=== PATIENT | female | born 1975 | race Hispanic/Latino ===

== ENCOUNTER 2018-05-05 00:02 | Emergency (ER) | payer OTHER ==
[2018-05-05] MEDS ORDERED: SODIUM CHLORIDE 0.9% 1000ML 1,000 ML IV ONE (00:41)
[2018-05-05] MEDS ORDERED: DiphenhydrAMINE HCL 50 MG/ML VIAL ONE (00:41)
[2018-05-05] MEDS ORDERED: ONDANSETRON HCL 4 MG/2 ML VIAL ONE (00:41)
[2018-05-05 00:48] LABS: BASOPHILS % (AUTO) 0.8 % (0.0-5.0); EOSINOPHILS % (AUTO) 2.9 % (0.0-8.0); HEMATOCRIT 40.8 % (36-48); LYMPHOCYTES % (AUTO) 37.2 % (21.0-51.0); MEAN CORPUSCULAR HEMOGLOBIN 30.3 pg (27.0-33.0); MEAN CORPUSCULAR HGB CONC 33.6 g/dL (32.0-36.0); MEAN CORPUSCULAR VOLUME 90.2 fL (79-99); MONOCYTES % (AUTO) 6.7 % (3.0-13.0); NEUTROPHILS % (AUTO) 52.4 % (40.0-77.0); PLATELET COUNT (AUTO) 361 K/uL (130-400); RED BLOOD CELL COUNT(AUTO) 4.53 MIL/uL (4.00-5.50); RED CELL DISTRIBUTION WIDTH 12.8 % (11.0-15.5); WHITE BLOOD COUNT (AUTO) 9.1 K/uL (4.8-10.8)
[2018-05-05 00:52] LABS: APPEARANCE,URINE Clear (CLEAR); BILIRUBIN,URINE Negative (NEGATIVE); COLOR,URINE Yellow (YELLOW); GLUCOSE, URINE (UA) Negative (NEGATIVE); KETONES,URINE Negative (NEGATIVE); LEUKOCYTE ESTERASE ,URINE Negative (NEGATIVE); NITRATE,URINE Negative (NEGATIVE); OCCULT BLOOD,URINE Trace (NEGATIVE); PH,URINE >=9.0 (5.0-8.0); PROTEIN,URINE Negative (NEGATIVE)
[2018-05-05 00:53] LABS: AMPHET/METH SCREEN,URINE NEGATIVE (NEGATIVE); BARBITURATE SCREEN, URINE NEGATIVE (NEGATIVE); BENZODIAZEPINES SCREEN,URINE NEGATIVE (NEGATIVE); CANNABINOID SCREEN,URINE NEGATIVE (NEGATIVE); COCAINE SCREEN,URINE NEGATIVE (NEGATIVE); OPIATE SCREEN,URINE NEGATIVE (NEGATIVE); PHENCYCLIDINE SCREEN,URINE NEGATIVE (NEGATIVE)
[2018-05-05 00:56] LABS: CREATININE 0.8 mg/dL (0.5-1.5); POTASSIUM 3.7 mmol/L (3.5-5.1)
[2018-05-05 01:00] LABS: ALBUMIN 3.3 g/dL (3.5-5.0); BACTERIA,URINE Rare /HPF (None Seen); BILIRUBIN,DIRECT 0.1 mg/dL (0.0-0.3); BILIRUBIN,TOTAL 0.5 mg/dL (0.2-1.0); SQUAMOUS EPITHELIAL CELL,UR 0-2 /HPF (0-2); TOTAL PROTEIN, SERUM 7.3 g/dL (6.0-8.3)
== END 2018-05-05 02:07 | disposition home or self-care (01) ==
LOC: EDH 00:02
DX: K29.00 Acute gastritis without bleeding (principal); Z98.51 Tubal ligation status
CPT/HCPCS: 36415; 80048; 80076; 80305; 81001; 83690; 85025; 96361; 96374; 96375; 99284; J1200; J2405; J7030

== ENCOUNTER → 2018-07-03 | Outpatient (CLI) | payer OTHER | END | disposition home or self-care (01) | LOC: RAH 06-26 09:35 | PROVIDERS: ATTEND Internal Medicine Gastroenterology | DX: K29.70 Gastritis, unspecified, without bleeding (principal); K44.9 Diaphragmatic hernia without obstruction or gangrene | CPT/HCPCS: 74240 ==

== ENCOUNTER 2019-03-10 21:39 | Emergency (ER) | payer OTHER ==
[2019-03-10] MEDS ORDERED: FAMOTIDINE/PF 20 MG/2 ML VIAL IV ONE (22:30)
[2019-03-10] MEDS ORDERED: ONDANSETRON HCL 4 MG/2 ML VIAL ONE (22:30)
[2019-03-10] MEDS ORDERED: SODIUM CHLORIDE 0.9% 1000ML 2,000 ML IV ONE (22:32)
[2019-03-10 22:38] LABS: BASOPHILS % (AUTO) 1.1 % (0.0-5.0); EOSINOPHILS % (AUTO) 1.7 % (0.0-8.0); HEMATOCRIT 42.4 % (36-48); MEAN CORPUSCULAR HEMOGLOBIN 30.9 pg (27.0-33.0); MONOCYTES % (AUTO) 7.2 % (3.0-13.0); PLATELET COUNT (AUTO) 356 K/uL (130-400); RED BLOOD CELL COUNT(AUTO) 4.66 MIL/uL (4.00-5.50); RED CELL DISTRIBUTION WIDTH 13.2 % (11.0-15.5); WHITE BLOOD COUNT (AUTO) 9.6 K/uL (4.8-10.8)
[2019-03-10 22:44] LABS: APPEARANCE,URINE Clear (CLEAR); BILIRUBIN,URINE Negative (NEGATIVE); COLOR,URINE Yellow (YELLOW); GLUCOSE, URINE (UA) Negative (NEGATIVE); KETONES,URINE Negative (NEGATIVE); LEUKOCYTE ESTERASE ,URINE Moderate (NEGATIVE); NITRATE,URINE Negative (NEGATIVE); OCCULT BLOOD,URINE Moderate (NEGATIVE); PH,URINE 5.5 (5.0-8.0); PROTEIN,URINE Negative (NEGATIVE)
[2019-03-10 22:46] LABS: HCG,QUAL RESULT NEGATIVE (NEGATIVE)
[2019-03-10 22:50] LABS: CREATININE 0.8 mg/dL (0.5-1.5); POTASSIUM 3.3 mmol/L (3.5-5.1)
[2019-03-10 22:54] LABS: ALBUMIN 3.8 g/dL (3.5-5.0); BILIRUBIN,TOTAL 0.9 mg/dL (0.2-1.0); TOTAL PROTEIN, SERUM 7.9 g/dL (6.0-8.3)
[2019-03-10 23:06] LABS: BACTERIA,URINE Few /HPF (None Seen); MUCUS,URINE Moderate LPF (None Seen); SQUAMOUS EPITHELIAL CELL,UR Moderate /HPF (0-2)
[2019-03-10] MEDS ORDERED: LEVOFLOXACIN 500 MG TABLET ONE (23:16)
== END 2019-03-10 23:58 | disposition home or self-care (01) ==
LOC: EDH 21:39
DX: E86.9 Volume depletion, unspecified (principal); R19.7 Diarrhea, unspecified; R11.2 Nausea with vomiting, unspecified; Z98.51 Tubal ligation status; Z86.718 Personal history of other venous thrombosis and embolism
CPT/HCPCS: 36415; 80053; 81001; 81025; 82550; 83690; 85025; 96361; 96374; 96375; 99284; J2405; J3490; J7030

== ENCOUNTER 2019-06-03 14:15 | Emergency (ER) | payer OTHER ==
[2019-06-03] MEDS ORDERED: SODIUM CHLORIDE 0.9% 1000ML 1,000 ML IV ONE (15:05)
[2019-06-03] MEDS ORDERED: ONDANSETRON HCL 4 MG/2 ML VIAL ONE (15:05)
[2019-06-03 15:22] LABS: BASOPHILS % (AUTO) 0.1 % (0.0-5.0); EOSINOPHILS % (AUTO) 1.1 % (0.0-8.0); HEMATOCRIT 40.8 % (36-48); LYMPHOCYTES % (AUTO) 30.7 % (21.0-51.0); MEAN CORPUSCULAR HGB CONC 34.4 g/dL (32.0-36.0); MEAN CORPUSCULAR VOLUME 90.2 fL (79-99); MONOCYTES % (AUTO) 9.7 % (3.0-13.0); NEUTROPHILS % (AUTO) 58.4 % (40.0-77.0); PLATELET COUNT (AUTO) 332 K/uL (130-400); RED BLOOD CELL COUNT(AUTO) 4.53 MIL/uL (4.00-5.50); WHITE BLOOD COUNT (AUTO) 9.8 K/uL (4.8-10.8)
[2019-06-03 15:22] LABS: APPEARANCE,URINE Cloudy (CLEAR); BILIRUBIN,URINE Small (NEGATIVE); COLOR,URINE Dark Yellow (YELLOW); GLUCOSE, URINE (UA) Negative (NEGATIVE); KETONES,URINE 40 mg/dL (NEGATIVE); LEUKOCYTE ESTERASE ,URINE Small (NEGATIVE); NITRATE,URINE Negative (NEGATIVE); OCCULT BLOOD,URINE Moderate (NEGATIVE); PROTEIN,URINE POS 1+ mg/dL (NEGATIVE)
[2019-06-03 15:30] LABS: AMPHET/METH SCREEN,URINE NEGATIVE (NEGATIVE); BARBITURATE SCREEN, URINE NEGATIVE (NEGATIVE); BENZODIAZEPINES SCREEN,URINE NEGATIVE (NEGATIVE); CANNABINOID SCREEN,URINE NEGATIVE (NEGATIVE); COCAINE SCREEN,URINE NEGATIVE (NEGATIVE); OPIATE SCREEN,URINE NEGATIVE (NEGATIVE); PHENCYCLIDINE SCREEN,URINE NEGATIVE (NEGATIVE)
[2019-06-03 15:33] LABS: CREATININE 0.8 mg/dL (0.5-1.5); POTASSIUM 3.8 mmol/L (3.5-5.1)
[2019-06-03 15:35] LABS: BACTERIA,URINE Moderate /HPF (None Seen); MUCUS,URINE Moderate LPF (None Seen)
[2019-06-03 15:49] LABS: ALBUMIN 3.2 g/dL (3.5-5.0); BILIRUBIN,DIRECT 0.1 mg/dL (0.0-0.3); BILIRUBIN,TOTAL 1.1 mg/dL (0.2-1.0); TOTAL PROTEIN, SERUM 7.4 g/dL (6.0-8.3)
[2019-06-03] MEDS ORDERED: DICYCLOMINE HCL 10 MG/ML 2ML AMP IM ONE (15:57)
[2019-06-03] MEDS ORDERED: KETOROLAC TROMETHAMINE 30MG/ML ONE (15:57)
== END 2019-06-03 18:19 | disposition home or self-care (01) ==
LOC: EDH 14:15
DX: K52.9 Noninfective gastroenteritis and colitis, unspecified (principal); Z98.51 Tubal ligation status; Z86.718 Personal history of other venous thrombosis and embolism
CPT/HCPCS: 36415; 71045; 74018; 80048; 80076; 80305; 81001; 82550; 83690; 85025; 93005; 96361; 96372 ×2; 96374; 99285; J0500; J1885; J2405; J7030

== ENCOUNTER 2020-03-01 09:22 | Emergency (ER) | payer OTHER ==
[2020-03-01] MEDS ORDERED: SODIUM CHLORIDE 0.9% 1000ML 1,000 ML IV ONE (09:23)
[2020-03-01] MEDS ORDERED: ONDANSETRON HCL 4 MG/2 ML VIAL ONE (09:51)
[2020-03-01] MEDS ORDERED: MORPHINE SULFATE 4 MG/1ML SYG ONE (09:52)
[2020-03-01 10:07] LABS: BASOPHILS % (AUTO) 0.3 % (0.0-5.0); HEMATOCRIT 43.4 % (36-48); LYMPHOCYTES % (AUTO) 32.3 % (21.0-51.0); MEAN CORPUSCULAR HEMOGLOBIN 30.9 pg (27.0-33.0); MEAN CORPUSCULAR HGB CONC 34.6 g/dL (32.0-36.0); MEAN CORPUSCULAR VOLUME 89.3 fL (79-99); MONOCYTES % (AUTO) 7.6 % (3.0-13.0); NEUTROPHILS % (AUTO) 57.7 % (40.0-77.0); PLATELET COUNT (AUTO) 363 K/uL (130-400); RED BLOOD CELL COUNT(AUTO) 4.86 MIL/uL (4.00-5.50); RED CELL DISTRIBUTION WIDTH 12.3 % (11.0-15.5); WHITE BLOOD COUNT (AUTO) 9.1 K/uL (4.8-10.8)
[2020-03-01 10:13] LABS: APPEARANCE,URINE CLEAR (CLEAR); BILIRUBIN,URINE SMALL (NEGATIVE); COLOR,URINE YELLOW (YELLOW); GLUCOSE, URINE (UA) NEGATIVE (NEGATIVE); KETONES,URINE 5 mg/dL (NEGATIVE); LEUKOCYTE ESTERASE ,URINE SMALL (NEGATIVE); NITRATE,URINE NEGATIVE (NEGATIVE); OCCULT BLOOD,URINE LARGE (NEGATIVE); PROTEIN,URINE 30 mg/dL (NEGATIVE)
[2020-03-01 10:19] LABS: HCG,QUAL RESULT NEGATIVE (NEGATIVE)
[2020-03-01 10:28] LABS: ALBUMIN 3.7 g/dL (3.5-5.0); BACTERIA,URINE Few /HPF (None Seen); BILIRUBIN,TOTAL 1.1 mg/dL (0.2-1.0); CREATININE 0.8 mg/dL (0.5-1.5); POTASSIUM 3.2 mmol/L (3.5-5.1); TOTAL PROTEIN, SERUM 7.8 g/dL (6.0-8.3)
[2020-03-01 10:29] LABS: SQUAMOUS EPITHELIAL CELL,UR Moderate /HPF (0-2)
[2020-03-01 10:30] LABS: MUCUS,URINE Few LPF (None Seen)
== END 2020-03-01 12:51 | disposition home or self-care (01) ==
LOC: EDH 09:22
DX: A09 Infectious gastroenteritis and colitis, unspecified (principal); R10.84 Generalized abdominal pain; Z20.828 Contact with and (suspected) exposure to other viral communicable diseases; Z86.718 Personal history of other venous thrombosis and embolism; Z98.51 Tubal ligation status
CPT/HCPCS: 36415; 74176; 80053; 81001; 81025; 83690; 84484; 85025; 87426; 93005; 96361; 96374; 96375; 99285; J2270; J2405; J7030; U0003

== ENCOUNTER → 2021-03-01 | Outpatient (CLI) | payer OTHER | END | disposition home or self-care (01) | LOC: DTH 14:21 | PROVIDERS: ATTEND Surgery | DX: G47.33 Obstructive sleep apnea (adult) (pediatric) (principal); K21.9 Gastro-esophageal reflux disease without esophagitis; E66.09 Other obesity due to excess calories; E78.00 Pure hypercholesterolemia, unspecified; K76.0 Fatty (change of) liver, not elsewhere classified | CPT/HCPCS: 97803 ==

== ENCOUNTER → 2021-04-23 | Outpatient (CLI) | payer OTHER | END | disposition home or self-care (01) | LOC: DTH 15:32 | PROVIDERS: ATTEND Surgery | DX: G47.33 Obstructive sleep apnea (adult) (pediatric) (principal); E66.09 Other obesity due to excess calories; E78.00 Pure hypercholesterolemia, unspecified; K76.0 Fatty (change of) liver, not elsewhere classified; K21.9 Gastro-esophageal reflux disease without esophagitis | CPT/HCPCS: 97803 ==

== ENCOUNTER 2021-04-30 06:57 | Day surgery (SDC) | payer OTHER ==
[~2021-04-30] VITALS: Ht 160 cm; Wt 106.6 kg
[~2021-04-30 06:57] MED LIST: ALBU1.252 IH; FLUT1BLS3 IH; FURO20TA4 PO
[2021-04-30 09:02] VITALS: BP 138/78
[2021-04-30] MEDS ORDERED: 0.9%NACL 1000ML 1,000 ML IV ONE (09:21)
[2021-04-30] MEDS ORDERED: PROPOFOL 10 MG/ML 20ML VIAL IV ONE (09:41)
[2021-04-30] MEDS ORDERED: MIDAZOLAM HCL 1 MG/ML 2ML VIAL ONE (09:42)
[2021-04-30 09:54] VITALS: BP 120/62
[2021-04-30 10:00] VITALS: BP 125/62
[2021-04-30 10:05] VITALS: BP 125/84
[2021-04-30 10:11] VITALS: BP 134/72
== END 2021-04-30 10:18 | disposition home or self-care (01) ==
LOC: DAH 06:57 → ENDO 06:57
PROVIDERS: ATTEND Surgery
DX: K21.9 Gastro-esophageal reflux disease without esophagitis (principal); Z20.822 Contact with and (suspected) exposure to COVID-19; K29.70 Gastritis, unspecified, without bleeding; J44.9 Chronic obstructive pulmonary disease, unspecified; G47.30 Sleep apnea, unspecified; I10 Essential (primary) hypertension; E78.5 Hyperlipidemia, unspecified; F41.9 Anxiety disorder, unspecified; F32.9 Major depressive disorder, single episode, unspecified; E66.01 Morbid (severe) obesity due to excess calories; Z68.41 Body mass index [BMI] 40.0-44.9, adult; Z79.899 Other long term (current) drug therapy; Z83.3 Family history of diabetes mellitus; Z82.49 Family history of ischemic heart disease and other diseases of the circulatory system; Z98.51 Tubal ligation status; Z82.3 Family history of stroke
CPT/HCPCS: 43239; 71045; 87635; 93005; A4215 ×2; A4221; A4222; A4223; A4606; A4620; A4657; A4663; C9803; J2250; J2704; J7030

== ENCOUNTER → 2021-06-15 | Outpatient (CLI) | payer OTHER | END | disposition home or self-care (01) | LOC: DTH 14:36 | PROVIDERS: ATTEND Surgery | DX: Z71.3 Dietary counseling and surveillance (principal); E78.00 Pure hypercholesterolemia, unspecified; K76.0 Fatty (change of) liver, not elsewhere classified; K21.9 Gastro-esophageal reflux disease without esophagitis; E66.09 Other obesity due to excess calories; Z68.38 Body mass index [BMI] 38.0-38.9, adult | CPT/HCPCS: 97803 ==

== ENCOUNTER → 2021-06-27 | Outpatient (CLI) | payer OTHER | END | disposition home or self-care (01) | LOC: RAH 13:35 | PROVIDERS: ATTEND Internal Medicine Pulmonary Disease | DX: J84.10 Pulmonary fibrosis, unspecified (principal) | CPT/HCPCS: 71250 ==

== ENCOUNTER 2022-01-21 07:00 | Day surgery (SDC) | payer OTHER ==
[~2022-01-21] VITALS: Ht 160 cm; Wt 79.4 kg
[2022-01-21] VITALS (14 sets, daily range): BP systolic 78–117; BP diastolic 42–90
[~2022-01-21 07:00] MED LIST changes: +CEFU500T67 PO; +DEXA6TAB PO; +FLUT1BLS IH; -FURO20TA4 PO; +INHA1EAC51 MC; +PANT40TA54 PO
[2022-01-21] MEDS ORDERED: 0.9%NACL 1000ML 1,000 ML IV ONE (07:39)
[2022-01-21] MEDS ORDERED: METO-408 PO (07:55)
[2022-01-21] MEDS ORDERED: PROPOFOL 10 MG/ML 20ML VIAL IV ONE ×4 (07:56→09:00)
== END 2022-01-21 10:10 | disposition home or self-care (01) ==
LOC: ENDO 07:00 → DAH 07:00 → ENDO 10:10
PROVIDERS: ATTEND Surgery
DX: R13.10 Dysphagia, unspecified (principal); R11.0 Nausea; J44.9 Chronic obstructive pulmonary disease, unspecified; E66.9 Obesity, unspecified; G47.30 Sleep apnea, unspecified; M81.0 Age-related osteoporosis without current pathological fracture; F32.A Depression, unspecified; F41.9 Anxiety disorder, unspecified; Z82.49 Family history of ischemic heart disease and other diseases of the circulatory system; Z83.3 Family history of diabetes mellitus; Z82.3 Family history of stroke; Z68.31 Body mass index [BMI] 31.0-31.9, adult; Z98.51 Tubal ligation status; Z79.899 Other long term (current) drug therapy; Z86.16 Personal history of COVID-19; Z98.84 Bariatric surgery status
CPT/HCPCS: 87426; 43235; J7030; J2704 ×4; A4620; A4215 ×2; A4223; A4222; A4221; A4663; A4606

== ENCOUNTER 2022-03-01 06:58 | Day surgery (SDC) | payer OTHER ==
[~2022-03-01] VITALS: Ht 160 cm; Wt 77.7 kg
[~2022-03-01 06:58] MED LIST changes: +0.9% NACL 500ML IV.SOLN 500 ML IV SCH; -CEFU500T67 PO; -DEXA6TAB PO; -FLUT1BLS IH; -INHA1EAC51 MC; +METO-408 PO
[2022-03-01 07:15] VITALS: BP 90/55
[2022-03-01] MEDS ORDERED: SODIUM TETRADECYL SULFATE 30 MG/ML VIAL IV SCH (08:00)
[2022-03-01] MEDS ORDERED: PROPOFOL 10 MG/ML 20ML VIAL IV ONE (08:53)
[2022-03-01 09:05] VITALS: BP 122/75
[2022-03-01 09:20] VITALS: BP 120/66
[2022-03-01] MEDS ORDERED: MORPHINE 2 MG SYG ONE (09:31)
[2022-03-01 09:35] VITALS: BP 129/71
[2022-03-01 09:50] VITALS: BP 126/54
[2022-03-01 10:05] VITALS: BP 114/63
== END 2022-03-01 10:30 ==
LOC: DAH 06:58 → ENDO 06:58
PROVIDERS: ATTEND Surgery
DX: K21.9 Gastro-esophageal reflux disease without esophagitis (principal); R13.10 Dysphagia, unspecified; J44.9 Chronic obstructive pulmonary disease, unspecified; I10 Essential (primary) hypertension; F41.9 Anxiety disorder, unspecified; F32.9 Major depressive disorder, single episode, unspecified; Z98.51 Tubal ligation status; Z98.84 Bariatric surgery status; Z20.822 Contact with and (suspected) exposure to COVID-19
CPT/HCPCS: 87426; 43236; 93005; J2704; J3490 ×2; A4215; A4223; A4222; A4221; A4663; A4606

== ENCOUNTER 2022-03-29 08:00 | Day surgery (SDC) | payer OTHER ==
[~2022-03-29] VITALS: Ht 160 cm; Wt 75.3 kg
[2022-03-29] VITALS (8 sets, daily range): BP systolic 101–137; BP diastolic 65–70
[~2022-03-29 08:00] MED LIST changes: +SODIUM TETRADECYL SULFATE 30 MG/ML 2 ML VIAL IV SCH
[2022-03-29] MEDS ORDERED: PROPOFOL 10 MG/ML 20ML VIAL IV ONE (09:10)
[2022-03-29] MEDS ORDERED: FENTANYL CITRATE PF 50 MCG/1 ML 2ML VIAL ONE (09:47)
[2022-03-29] MEDS ORDERED: ONDANSETRON 4MG INJ ONE (09:47)
== END 2022-03-29 10:45 | disposition home or self-care (01) ==
LOC: DAH 08:00
PROVIDERS: ATTEND Surgery
DX: R13.10 Dysphagia, unspecified (principal); K28.9 Gastrojejunal ulcer, unspecified as acute or chronic, without hemorrhage or perforation; K29.50 Unspecified chronic gastritis without bleeding; K31.4 Gastric diverticulum; K21.9 Gastro-esophageal reflux disease without esophagitis; G47.33 Obstructive sleep apnea (adult) (pediatric); F32.A Depression, unspecified; F41.9 Anxiety disorder, unspecified; Z98.51 Tubal ligation status; Z98.890 Other specified postprocedural states; Z82.49 Family history of ischemic heart disease and other diseases of the circulatory system; Z83.3 Family history of diabetes mellitus; Z82.3 Family history of stroke; Z82.5 Family history of asthma and other chronic lower respiratory diseases; Z80.9 Family history of malignant neoplasm, unspecified
CPT/HCPCS: 87426; 43239; 84703; 36415; J3010; J2704; J2405; J3490; A4620; A4215 ×2; A4223; A4657 ×2; A4222; A4221; A4663; A4216; A4606

== ENCOUNTER → 2022-04-18 | Outpatient (CLI) | payer OTHER ==
[~2022-04-18] MED LIST changes: -0.9% NACL 500ML IV.SOLN 500 ML IV SCH; -SODIUM TETRADECYL SULFATE 30 MG/ML 2 ML VIAL IV SCH
== END | disposition home or self-care (01) ==
LOC: RAH 15:18
PROVIDERS: ATTEND Internal Medicine Critical Care Medicine
DX: I26.99 Other pulmonary embolism without acute cor pulmonale (principal); F41.9 Anxiety disorder, unspecified
CPT/HCPCS: 78582; A9540; A9558

== ENCOUNTER 2022-05-23 17:19 | Emergency (ER) | payer OTHER ==
[~2022-05-23] VITALS: Ht 160 cm; Wt 72.6 kg
[2022-05-23] MEDS ORDERED: 0.9%NACL 1000ML 1,000 ML IV SCH (19:00)
[2022-05-23] MEDS ORDERED: ONDANSETRON 4MG INJ IVP ONE (19:00)
[2022-05-23] MEDS ORDERED: DiphenhydrAMINE HCL 50 MG/ML VIAL IV ONE (19:00)
[2022-05-23] MEDS ORDERED: KETOROLAC 15MG/ML VIAL (15MG/ML) IV ONE (19:00)
[2022-05-23 19:13] LABS: BASOPHILS % (AUTO) 0.5 % (0.0-5.0); EOSINOPHILS % (AUTO) 0.7 % (0.0-8.0); HEMATOCRIT 44.9 % (36-48); LYMPHOCYTES % (AUTO) 26.7 % (21.0-51.0); MEAN CORPUSCULAR HEMOGLOBIN 31.2 pg (27.0-33.0); MEAN CORPUSCULAR HGB CONC 34.1 g/dL (32.0-36.0); MEAN CORPUSCULAR VOLUME 91.4 fL (79-99); MONOCYTES % (AUTO) 5.4 % (3.0-13.0); NEUTROPHILS % (AUTO) 66.5 % (40.0-77.0); PLATELET COUNT (AUTO) 308 K/uL (130-400); RED BLOOD CELL COUNT(AUTO) 4.91 MIL/uL (4.00-5.50); RED CELL DISTRIBUTION WIDTH 13.1 % (11.0-15.5); WHITE BLOOD COUNT (AUTO) 9.8 K/uL (4.8-10.8)
[2022-05-23 19:32] LABS: APPEARANCE,URINE CLEAR (CLEAR); BILIRUBIN,URINE NEGATIVE (NEGATIVE); COLOR,URINE YELLOW (YELLOW); GLUCOSE, URINE (UA) NEGATIVE (NEGATIVE); KETONES,URINE 40 mg/dL (NEGATIVE); LEUKOCYTE ESTERASE ,URINE 25 Leu/uL (NEGATIVE); NITRATE,URINE NEGATIVE (NEGATIVE); OCCULT BLOOD,URINE NEGATIVE (NEGATIVE); PH,URINE 5.5 (5.0-8.0); PROTEIN,URINE 10 mg/dL (NEGATIVE); UROBILINOGEN,URINE 0.2 mg/dL (0.2-1.0)
[2022-05-23 19:40] LABS: BACTERIA,URINE RARE /HPF (None Seen); MUCUS,URINE RARE LPF (None Seen); SQUAMOUS EPITHELIAL CELL,UR FEW /HPF (0-2)
[2022-05-23 20:28] LABS: CREATININE 0.7 mg/dL (0.5-1.5); POTASSIUM 3.6 mmol/L (3.5-5.1)
[2022-05-23 20:33] LABS: ALBUMIN 2.7 g/dL (3.5-5.0); TOTAL PROTEIN, SERUM 5.5 g/dL (6.0-8.3)
[2022-05-23 21:59] VITALS: BP 100/42
[2022-05-23] MEDS ORDERED: CEPH500B PO (22:26)
== END 2022-05-23 22:35 | disposition home or self-care (01) ==
LOC: EDH 17:19
DX: N39.0 Urinary tract infection, site not specified (principal); Z20.822 Contact with and (suspected) exposure to COVID-19; M19.90 Unspecified osteoarthritis, unspecified site; J44.9 Chronic obstructive pulmonary disease, unspecified; Z86.718 Personal history of other venous thrombosis and embolism; Z98.890 Other specified postprocedural states; Z79.899 Other long term (current) drug therapy
CPT/HCPCS: 99284; 96374; 71045; 96361; 96375; 87635; 80053; 85025; 87880; 87804 ×2; 83605; 81001; 36415; C9803; J1200; J7030; J2405; J1885

== ENCOUNTER 2022-05-27 07:49 | Day surgery (SDC) | payer OTHER ==
[~2022-05-27] VITALS: Ht 160 cm; Wt 72.6 kg
[~2022-05-27 07:49] MED LIST changes: +CEPH500B PO; +SODIUM TETRADECYL SULFATE 30 MG/ML 2 ML VIAL IV SCH
[2022-05-27 08:42] VITALS: BP 90/56
[2022-05-27] MEDS ORDERED: OXYGEN NASAL (09:16)
[2022-05-27] MEDS ORDERED: BUDE0.5A3 IH (09:16)
[2022-05-27] MEDS ORDERED: LINA290C PO (09:16)
[2022-05-27] MEDS ORDERED: IBAN150T16 PO (09:16)
[2022-05-27] MEDS ORDERED: REVE175V IH (09:16)
[2022-05-27] MEDS ORDERED: PROPOFOL 10 MG/ML 20ML VIAL IV ONE ×2 (09:30)
[2022-05-27] MEDS ORDERED: LIDOCAINE HCL-MPF 2% 10ML AMP IJ ONE (09:32)
[2022-05-27] MEDS ORDERED: KETOROLAC 30MG VIAL (30MG/ML) ONE (10:10)
[2022-05-27] MEDS ORDERED: MEPERIDINE-PF 25 MG/ML SYG ONE (10:11)
[2022-05-27] MEDS ORDERED: ONDANSETRON 4MG INJ ONE (10:23)
== END 2022-05-27 11:00 | disposition home or self-care (01) ==
LOC: ENDO 07:49 → DAH 07:49 → ENDO 11:00
PROVIDERS: ATTEND Surgery
DX: K21.9 Gastro-esophageal reflux disease without esophagitis (principal); G47.30 Sleep apnea, unspecified; F41.9 Anxiety disorder, unspecified; F32.A Depression, unspecified; Z98.84 Bariatric surgery status; Z82.49 Family history of ischemic heart disease and other diseases of the circulatory system; Z83.3 Family history of diabetes mellitus; Z82.3 Family history of stroke; Z82.5 Family history of asthma and other chronic lower respiratory diseases; Z98.51 Tubal ligation status; Z98.890 Other specified postprocedural states
CPT/HCPCS: 43236; 84703; 36415; J2704 ×2; J2405; J1885; J2175; J3490 ×3; A4620; A4215 ×2; A4223; A4657; A4222; A4221; A4663; A4216; J7030; A4606; 43235

== ENCOUNTER → 2022-06-22 | Outpatient (CLI) | payer OTHER ==
[~2022-06-22] MED LIST changes: +BUDE0.5A3 IH; +IBAN150T16 PO; +IVAB5TAB PO; +LINA290C PO; +OXYGEN NASAL; +REVE175V IH; -SODIUM TETRADECYL SULFATE 30 MG/ML 2 ML VIAL IV SCH
== END | disposition home or self-care (01) ==
LOC: SHCH 11:05
PROVIDERS: ATTEND Internal Medicine Cardiovascular Disease
DX: R00.2 Palpitations (principal); R01.1 Cardiac murmur, unspecified
CPT/HCPCS: 93306

== ENCOUNTER 2022-10-11 02:12 | Observation (INO) | payer OTHER ==
[~2022-10-11] VITALS: Ht 160 cm; Wt 68.8 kg
[~2022-10-11 02:12] MED LIST changes: -CEPH500B PO; -METO-408 PO
[2022-10-11 02:41] LABS: BASOPHILS % (AUTO) 0.6 % (0.0-5.0); EOSINOPHILS % (AUTO) 1.4 % (0.0-8.0); HEMATOCRIT 39.1 % (36-48); LYMPHOCYTES % (AUTO) 35.5 % (21.0-51.0); MEAN CORPUSCULAR HEMOGLOBIN 30.6 pg (27.0-33.0); MEAN CORPUSCULAR VOLUME 92.7 fL (79-99); MONOCYTES % (AUTO) 7.2 % (3.0-13.0); NEUTROPHILS % (AUTO) 55.1 % (40.0-77.0); PLATELET COUNT (AUTO) 333 K/uL (130-400); RED BLOOD CELL COUNT(AUTO) 4.22 MIL/uL (4.00-5.50); RED CELL DISTRIBUTION WIDTH 12.1 % (11.0-15.5); WHITE BLOOD COUNT (AUTO) 9.8 K/uL (4.8-10.8)
[2022-10-11 04:02] LABS: ALBUMIN 3.1 g/dL (3.5-5.0); CREATININE 0.8 mg/dL (0.5-1.5); POTASSIUM 3.5 mmol/L (3.5-5.1); TOTAL PROTEIN, SERUM 6.3 g/dL (6.0-8.3)
[2022-10-11] MEDS ORDERED: ACETAMINOPHEN 325 MG TAB PO PRN (07:30)
[2022-10-11 07:59] LABS: INR 0.94 (0.85-1.15); PROTHROMBIN TIME 10.3 SEC (9.6-11.6)
[2022-10-11 08:00] LABS: PARTIAL THROMBOPLASTIN TIME 24.7 SEC (26.3-35.5)
[2022-10-11 08:10] LABS: CREATINE KINASE, TOTAL 40 U/L (21-232); MYOGLOBIN 26 ng/mL (10-92); PHOSPHORUS 5.2 mg/dL (2.5-4.9); THYROID STIMULATING HORMONE 3.19 uIU/mL (0.36-3.74)
[2022-10-11] MEDS: ACETAMINOPHEN 325 MG TAB PO PRN ×2 (08:47→21:35)
[2022-10-11] MEDS: ONDANSETRON 4MG INJ IV PRN ×2 (08:48→21:24)
[2022-10-11] MEDS: FAMOTIDINE 20MG VIAL IV SCH ×2 (08:48→21:22)
[2022-10-11 09:38] LABS: ABG BASE EXCESS 1.4 mmol/L (-2.0-3.0); ABG OXYGEN SATURATION 98.9 % (95.0-99.0); ABG PCO2 41 mmHg (32-45)
[2022-10-11 11:15] VITALS: BP 108/68
[2022-10-11] MEDS: ALBUTEROL 0.083% 2.5 MG/3 ML INH IH SCH ×2 (11:20→17:28)
[2022-10-11 16:19] VITALS: BP 87/59
[2022-10-11 16:20] VITALS: BP 115/73
[2022-10-11 16:21] VITALS: BP 106/65
[2022-10-11 19:12] VITALS: BP 90/55
[2022-10-11 23:47] LABS: CREATINE KINASE, TOTAL 34 U/L (21-232); MYOGLOBIN 14 ng/mL (10-92)
[2022-10-12 00:12] VITALS: BP 97/61
[2022-10-12] MEDS: ALBUTEROL 0.083% 2.5 MG/3 ML INH IH SCH ×5 (00:35→23:49)
[2022-10-12 03:12] VITALS: BP 94/49
[2022-10-12 07:16] VITALS: BP 137/69
[2022-10-12] MEDS: FAMOTIDINE 20MG VIAL IV SCH ×2 (08:54→20:16)
[2022-10-12] MEDS: ONDANSETRON 4MG INJ IV PRN ×2 (11:22→20:19)
[2022-10-12] MEDS: DILTIAZEM 120MG SR CAP PO SCH (11:24)
[2022-10-12 12:00] VITALS: BP 99/62
[2022-10-12 16:00] VITALS: BP 95/60
[2022-10-12 19:18] VITALS: BP 101/54
[2022-10-12] MEDS ORDERED: TEMAZEPAM 7.5 MG CAPSULE PO SCH (20:30)
[2022-10-13 00:18] VITALS: BP 87/45
[2022-10-13 03:18] VITALS: BP 90/47
[2022-10-13 03:34] LABS: BASOPHILS % (AUTO) 0.6 % (0.0-5.0); EOSINOPHILS % (AUTO) 2.1 % (0.0-8.0); HEMATOCRIT 35.7 % (36-48); MEAN CORPUSCULAR HEMOGLOBIN 30.1 pg (27.0-33.0); MEAN CORPUSCULAR HGB CONC 32.5 g/dL (32.0-36.0); MEAN CORPUSCULAR VOLUME 92.7 fL (79-99); MONOCYTES % (AUTO) 7.9 % (3.0-13.0); NEUTROPHILS % (AUTO) 53.2 % (40.0-77.0); PLATELET COUNT (AUTO) 284 K/uL (130-400); RED BLOOD CELL COUNT(AUTO) 3.85 MIL/uL (4.00-5.50); RED CELL DISTRIBUTION WIDTH 12.2 % (11.0-15.5); WHITE BLOOD COUNT (AUTO) 8.8 K/uL (4.8-10.8)
[2022-10-13 03:46] LABS: CREATININE 0.8 mg/dL (0.5-1.5); POTASSIUM 3.8 mmol/L (3.5-5.1)
[2022-10-13] MEDS: ALBUTEROL 0.083% 2.5 MG/3 ML INH IH SCH ×2 (06:22→11:27)
[2022-10-13 07:23] VITALS: BP 88/43
[2022-10-13] MEDS: ONDANSETRON 4MG INJ IV PRN (08:57)
[2022-10-13] MEDS: DILTIAZEM 120MG SR CAP PO SCH (08:57)
[2022-10-13] MEDS: FAMOTIDINE 20MG VIAL IV SCH (08:57)
[2022-10-13] MEDS ORDERED: DILT-36 PO (09:57)
[2022-10-13] MEDS: ACETAMINOPHEN 325 MG TAB PO PRN (12:18)
[2022-10-13 12:19] VITALS: BP 125/63
== END 2022-10-13 18:01 | disposition home or self-care (01) ==
LOC: EDH 02:12 → EDHIP 07:19 → 2AH 11:05
PROVIDERS: ADMIT Internal Medicine; ATTEND Internal Medicine
DX: R00.1 Bradycardia, unspecified (principal); R42 Dizziness and giddiness; R55 Syncope and collapse; J96.11 Chronic respiratory failure with hypoxia; J44.9 Chronic obstructive pulmonary disease, unspecified; M81.8 Other osteoporosis without current pathological fracture; J84.10 Pulmonary fibrosis, unspecified; E66.01 Morbid (severe) obesity due to excess calories; Z86.16 Personal history of COVID-19; Z99.81 Dependence on supplemental oxygen; Z98.84 Bariatric surgery status; Z87.01 Personal history of pneumonia (recurrent); Z79.899 Other long term (current) drug therapy
CPT/HCPCS: 96374; 96376 ×3; 96375; 99285; 84443; 82550 ×3; 83735 ×2; 84100; 83874 ×3; 84484 ×4; 80053; 82803; 83880; 85025 ×2; 85378; 85610; 85730; 36415 ×2; 93005 ×3; 36600; 94640 ×9; 94664; 80048; G0378 ×56; J3490 ×5; J2405 ×5

== ENCOUNTER 2022-12-17 10:00 | Day surgery (SDC) | payer OTHER ==
[2022-12-16 14:34] LABS: BASOPHILS % (AUTO) 0.5 % (0.0-5.0); HEMATOCRIT 41.8 % (36-48); LYMPHOCYTES % (AUTO) 34.9 % (21.0-51.0); MEAN CORPUSCULAR HEMOGLOBIN 30.4 pg (27.0-33.0); MEAN CORPUSCULAR HGB CONC 32.5 g/dL (32.0-36.0); MEAN CORPUSCULAR VOLUME 93.5 fL (79-99); MONOCYTES % (AUTO) 7.7 % (3.0-13.0); NEUTROPHILS % (AUTO) 54.7 % (40.0-77.0); PLATELET COUNT (AUTO) 388 K/uL (130-400); RED BLOOD CELL COUNT(AUTO) 4.47 MIL/uL (4.00-5.50); RED CELL DISTRIBUTION WIDTH 13.2 % (11.0-15.5); WHITE BLOOD COUNT (AUTO) 6.1 K/uL (4.8-10.8)
[2022-12-16 14:38] VITALS: BP 100/62
[2022-12-16 14:44] LABS: INR 0.96 (0.85-1.15); PROTHROMBIN TIME 10.5 SEC (9.6-11.6)
[2022-12-16 14:45] LABS: PARTIAL THROMBOPLASTIN TIME 25.5 SEC (26.3-35.5)
[2022-12-16 14:56] LABS: CREATININE 0.7 mg/dL (0.5-1.5); POTASSIUM 4.2 mmol/L (3.5-5.1)
[~2022-12-17] VITALS: Ht 158.8 cm; Wt 68.7 kg
[2022-12-17] VITALS (24 sets, daily range): BP systolic 90–129; BP diastolic 45–65
[~2022-12-17 10:00] MED LIST changes: +DILT-36 PO; -IVAB5TAB PO
[2022-12-17] MEDS ORDERED: ETOMIDATE 20MG VIAL IVP ONE (10:01)
[2022-12-17] MEDS ORDERED: ALPR0.25 PO (11:51)
[2022-12-17] MEDS ORDERED: ALBU90AE2 IH (11:51)
[2022-12-17] MEDS ORDERED: HEPARIN 10,000 UNIT/10ML (1,000 UNIT/ML) VIAL ONE ×2 (12:34→13:05)
[2022-12-17] MEDS ORDERED: LIDOCAINE PF 100MG/5ML (2%) SYRINGE 5ML ONE (12:52)
[2022-12-17] MEDS ORDERED: ROCURONIUM 10MG/1ML SYR 10 MG/ML ML ONE (12:52)
[2022-12-17] MEDS ORDERED: MIDAZOLAM HCL 1 MG/ML 2ML VIAL ONE ×2 (12:52→12:53)
[2022-12-17] MEDS ORDERED: PROPOFOL 10 MG/ML 20ML VIAL IV ONE (12:53)
[2022-12-17] MEDS ORDERED: DEXAMETHASONE SOD PHOSPHATE 10MG/ML 1ML VIAL ONE (13:04)
[2022-12-17] MEDS ORDERED: PHENYLEPHRINE HCL 10 MG/ML 1ML VIAL IV ONE (13:04)
[2022-12-17] MEDS ORDERED: EPHEDRINE SULFATE 50 MG/ML AMPULE ONE (13:04)
[2022-12-17] MEDS ORDERED: FENTANYL CITRATE PF 50 MCG/1 ML 2ML VIAL ONE (13:04)
[2022-12-17] MEDS ORDERED: ONDANSETRON 4MG INJ ONE (13:05)
[2022-12-17] MEDS ORDERED: FAMOTIDINE 20MG VIAL IV ONE (13:05)
[2022-12-17] MEDS ORDERED: PHENYLEPHRINE HCL 10 MG/ML 5ML VIAL IV ONE (13:12)
[2022-12-17] MEDS ORDERED: ISOPROTERENOL HCL 0.2 MG/ML AMP/VIAL/BAG ONE (13:38)
[2022-12-17] MEDS ORDERED: KETOROLAC 30MG VIAL (30MG/ML) ONE (16:22)
== END 2022-12-17 18:05 | disposition home or self-care (01) ==
LOC: DAH 10:00
PROVIDERS: ATTEND Internal Medicine Cardiovascular Disease
DX: I47.1 Supraventricular tachycardia (principal); Z20.822 Contact with and (suspected) exposure to COVID-19; K21.9 Gastro-esophageal reflux disease without esophagitis; J44.9 Chronic obstructive pulmonary disease, unspecified; M81.8 Other osteoporosis without current pathological fracture; Z79.01 Long term (current) use of anticoagulants; Z98.84 Bariatric surgery status; Z88.8 Allergy status to other drugs, medicaments and biological substances; Z86.16 Personal history of COVID-19; Z79.899 Other long term (current) drug therapy; Z79.82 Long term (current) use of aspirin; Z98.890 Other specified postprocedural states
CPT/HCPCS: 80048; 84703; 85025; 85610; 85730; 87426; 36415; 93005; 93620; 93623; 93613; 93621; C1894 ×5; C1732; C1730 ×3; C1731; A4649 ×2; J3490 ×4; J3010; J1100; J2001; J1644 ×4; J2250 ×2; J2704; J2405; J1885; J2370 ×2; A4615; A4215; A4222; A4221; A4663; A4216; A4606; A4223 ×3

== ENCOUNTER 2023-08-12 11:55 | Emergency (ER) | payer OTHER ==
[~2023-08-12] VITALS: Ht 160 cm; Wt 72.6 kg
[~2023-08-12 11:55] MED LIST changes: +ALBU90AE2 IH; +ALPR0.25 PO; +MIDO5TAB4 PO
[2023-08-12 13:12] LABS: INFLUENZA TYPE A Negative For Type A (NEGATIVE); INFLUENZA TYPE B Negative For Type B (NEGATIVE)
[2023-08-12 13:31] LABS: BASOPHILS # (AUTO) 0.03 K/uL (0.00-0.20); BASOPHILS % (AUTO) 0.3 % (0.0-5.0); EOSINOPHILS # (AUTO) 0.12 K/uL (0.00-0.70); EOSINOPHILS % (AUTO) 1.1 % (0.0-8.0); HEMATOCRIT 42.9 % (36-48); IMMATURE GRANULOCYTE ABSOLUTE 0.04 K/uL (0-1); LYMPHOCYTES # (AUTO) 1.6 K/uL (1.0-4.8); LYMPHOCYTES % (AUTO) 14.5 % (21.0-51.0); MEAN CORPUSCULAR HEMOGLOBIN 30.9 pg (27.0-33.0); MEAN CORPUSCULAR HGB CONC 33.3 g/dL (32.0-36.0); MEAN CORPUSCULAR VOLUME 92.7 fL (79-99); MONOCYTES # (AUTO) 0.8 K/uL (0.1-1.0); MONOCYTES % (AUTO) 6.9 % (3.0-13.0); NEUTROPHILS # (AUTO) 8.3 K/uL (1.8-7.7); NEUTROPHILS % (AUTO) 76.8 % (40.0-77.0); PLATELET COUNT (AUTO) 370 K/uL (130-400); RED BLOOD CELL COUNT(AUTO) 4.63 MIL/uL (4.00-5.50); RED CELL DISTRIBUTION WIDTH 11.8 % (11.0-15.5); WHITE BLOOD COUNT (AUTO) 10.9 K/uL (4.8-10.8)
[2023-08-12 13:39] LABS: INR <= 0.93 (0.85-1.15); PROTHROMBIN TIME 10.6 SEC (9.6-11.6)
[2023-08-12 13:40] LABS: CREATININE 0.7 mg/dL (0.5-1.5); POTASSIUM 3.9 mmol/L (3.5-5.1)
[2023-08-12 13:41] LABS: PARTIAL THROMBOPLASTIN TIME 25.7 SEC (26.3-35.5)
[2023-08-12 13:46] LABS: ALBUMIN 3.2 g/dL (3.5-5.0); BILIRUBIN,TOTAL 0.7 mg/dL (0.2-1.0); TOTAL PROTEIN, SERUM 7.2 g/dL (6.0-8.3)
[2023-08-12 14:18] LABS: RAPID GROUP A STREP positive (NEGATIVE)
[2023-08-12 14:22] LABS: COVID19 (SARS ANTIGEN RAPID) PRESUMPTIVE NEGATIVE (NEGATIVE)
[2023-08-12 14:23] LABS: D-DIMER 691 ng/mL (0-500)
[2023-08-12 14:30] VITALS: BP 115/78; O2SAT 100
[2023-08-12] MEDS ORDERED: PREDNISONE 20 MG TABLET PO ONE (14:30)
[2023-08-12] MEDS ORDERED: IPRATROPIUM/ALBUTEROL SULFATE 3 ML SOLUTION IH ONE (14:30)
[2023-08-12 14:35] VITALS: PULSE 80; RESP 21
[2023-08-12] MEDS ORDERED: PRED20TA3 PO (14:46)
[2023-08-12] MEDS ORDERED: AMOX1TAB16 PO (14:46)
[2023-08-12] MEDS ORDERED: AMOX/CLAV 875/125MG TAB PO ONE (15:00)
[2023-08-12 23:13] LABS: APPEARANCE,URINE CLEAR (CLEAR); BILIRUBIN,URINE NEGATIVE (NEGATIVE); COLOR,URINE YELLOW (YELLOW); GLUCOSE, URINE (UA) NEGATIVE (NEGATIVE); KETONES,URINE 20 mg/dL (NEGATIVE); LEUKOCYTE ESTERASE ,URINE 75 Leu/uL (NEGATIVE); NITRATE,URINE NEGATIVE (NEGATIVE); PH,URINE 6.5 (5.0-8.0); PROTEIN,URINE 30 mg/dL (NEGATIVE)
[2023-08-12 23:16] LABS: ADD UA MICROSCOPIC YES
[2023-08-12 23:24] LABS: MUCUS,URINE RARE LPF (None Seen); RBC,URINE 26-50 /HPF (0-1); SQUAMOUS EPITHELIAL CELL,UR RARE /HPF (0-2)
== END 2023-08-12 15:29 | disposition home or self-care (01) ==
LOC: EDH 11:55
DX: J45.901 Unspecified asthma with (acute) exacerbation (principal); I10 Essential (primary) hypertension; Z20.822 Contact with and (suspected) exposure to COVID-19; Z79.899 Other long term (current) drug therapy; Z98.890 Other specified postprocedural states
CPT/HCPCS: 36415; 71045; 80053; 81001; 82550; 83605; 84484; 85025; 85378; 85610; 85730; 87040; 87088; 87426; 87804; 87880; 93005; 94640

== ENCOUNTER 2024-07-19 15:54 | Emergency (ER) | payer OTHER ==
[~2024-07-19] VITALS: Ht 160 cm; Wt 74.8 kg
[~2024-07-19 15:54] MED LIST changes: -ALBU90AE2 IH; +ALBU90AE3 IH; +AMOX1TAB16 PO; +PRED20TA3 PO
[2024-07-19 16:34] LABS: RAPID GROUP A STREP negative (NEGATIVE)
--- NOTE | 2024-07-19 16:34 | ERN ---
ED Note History of Present Illness Stated Complaint: FEVER, COUGH, CONGESTION Chief Complaint: Cough Time Seen by MD: 16:10 Dictation: 49-year-old female with a history of COPD and asthma presents to the ED for evaluation of fever onset 2 days ago. Patient reports cough, nasal congestion, body aches, chest pressure, back pain, but denies any other associated symptoms at this time. Patient states she took 800 mg of Motrin and Tylenol 500 mg at home. Patient also mentioned she is on 3 L of O2 at home. Allergies: Coded Allergies: No Known Drug Allergies (Unverified Allergy, Unknown, 01/17/17) Home Meds Active Scripts Albuterol Sulfate (Ventolin Hfa/Proventil Hfa/Proair Hfa) 90 Mcg Puff, 1 PUFF IH Q4H PRN for SHORTNESS OF BREATH for 5 Days, #1 INH 0 Refills PHARMACY TO DISPENSE 1 INHALER FOR USE Prov:APRIL GONZALEZ MD 07/19/24 Oseltamivir Phosphate (Tamiflu) 75 Mg Cap, 75 MG PO BID for 5 Days, #10 CAP Prov:APRIL GONZALEZ MD 07/19/24 Prednisone (Prednisone) 20 Mg Tablet, 2 TAB PO DAILY for 5 Days, #10 TAB 0 Refills Prov:DANG MARTINEZ [employer] 08/12/23 Amoxicillin/Potassium Clav (Amox Tr-K Clv 875-125 mg Tab) 875 Mg-125 Mg Tablet, 1 EACH PO BID for 7 Days, #14 TAB Prov:DANG MARTINEZ [employer] 08/12/23 Diltiazem HCl (Diltiazem 24Hr ER) 120 Mg Cap.er.24h, 120 MG PO DAILY for 30 Days, #30 CAPSULE. 1 Refill Prov:ABRAHAM RUBIO 10/13/22 Pantoprazole Sodium (Pantoprazole Sodium) 40 Mg Tablet., 40 MG PO DAILY for 30 Days, #30 TAB Prov:СЕРГЕЙ DUKE Jr., MD 08/09/21 Reported Medications Midodrine HCl (Midodrine HCl) 5 Mg Tablet, 5 MG PO TID, TAB 06/12/23 Alprazolam (Xanax) 0.25 Mg Tablet, 0.25 MG PO AM PRN for ANXIETY, TAB 12/17/22 Albuterol Sulfate (Proair Digihaler) 90 Mcg Aer.pw.bas, 90 MCG IH Q4PRN PRN for SHORTNESS OF BREATH 12/17/22 [Oxygen] No Conflict Check, 3 L NASAL 05/27/22 Revefenacin (Yupelri) 175 Mcg/3 Ml Vial.neb, 175 MCG IH DAILY, INH 05/27/22 Budesonide (Budesonide) 0.5 Mg/2 Ml Ampul.neb, 0.5 MG IH BID 05/27/22 Ibandronate Sodium (Boniva) 150 Mg Tablet, 150 MG PO QMONTH, TAB 05/27/22 Linaclotide (Linzess) 290 Mcg Capsule, 290 MCG PO DAILY PRN for CONSTIPATION, CAP 05/27/22 Albuterol Sulfate (Albuterol Sulfate) 1.25 Mg/3 Ml Vial.neb, 1.25 MG IH QIDP, INH 04/27/21 Fluticasone/Umeclidin/Vilanter (Trelegy Ellipta 100-62.5-25) 1 Each Blst.w.dev, 1 EACH IH HS 04/27/21 Past Medical History Past Medical History: Asthma, COPD, DVT, Hypertension Additional Past Medical Hx: HX OF COVID; PT ON HOME O2 AT 3 L/MIN, PE Surgical History: BTL, Bariatric Surgery Surgical History Other: TUBAL LIGATION; GASTRIC BYPASS Family History: Negative Social History: Negative, Lives with family History: Not Applicable Review of System Dictation Constitutional: Positive for fever, body aches negative for chills, and weight loss Eyes: Negative for injury, pain,redness, and discharge ENT: Positive for nasal congestion Negative for injury,pain or swelling Cardiovascular: Positive for chest pressure Negative for chest pain, palpitations, and edema Respiratory: Positive for cough,Negative for shortness of breath and wheezing, Abdomen/GI: Negative for abdominal pain, nausea, vomiting, diarrhea, and constipation Back: Positive for back pain : Negative for injury, bleeding and discharge MS/Extremity: Negative for injury and deformity Skin: Negative for rash, and discoloration Neuro: Negative for headache, weakness, numbness, tingling, and seizure Psych: Negative for suicide ideation, homicidal ideation, and hallucinations Initial Vital Sign VS Vital Signs Date Time Temp Pulse Resp B/P (MAP) Pulse Ox O2 Delivery O2 Flow Rate FiO2 1/6/25 15:55 102.2 111 16 126/81 98 Room Air 0 07/19/24 16:05 21 Physical Exam Dictation General: awake, alert, NAD Head/Face: Normocephalic, atraumatic Eyes: PERRL, EOMI, vision at baseline ENT: oral cavity clear, TMs clear, nasal congestion Neck: Trachea midline, supple, no nuchal rigidity Cardiovascular: RRR, normal S1/S2, No MRGs, no JVD Respiratory: Coarse bilateral breath sounds, slight expiratory wheeze Abdomen: Soft, non-tender, non-distended, normal bowel sounds, no guarding or rebound. Skin: Warm, dry, normal turgor, no rash MS/Extremity: Pulses equal, no cyanosis, neurovascular intact, FROM Neuro: COAx4, GCS 15, strength 5/5, CN 2-12 intact, normal cerebellar exam, normal gait, Psych: Normal behavior, mood, and affect normal Results (Laboratory/Radiology) Laboratory/Radiology Laboratory Tests Test 07/19/24 16:02 Influenza Type A Antigen Positive For Type A Influenza Type B Antigen Negative For Type B SARS-CoV-2, RNA, NAAT NEGATIVE SARS CoV-2 Group A Streptococcus Rapid negative (NEGATIVE) Labs Reviewed?: Yes ED Course ED Course Orders Procedure Category Date Status Time Covid Rna Naat LAB 07/19/24 Complete 16:00 Influenza Type A & B, LAB 07/19/24 Complete Rapid 16:00 Rapid (Group A Strep) LAB 07/19/24 Complete 16:00 Chest 1vw RAD 07/19/24 Resulted 16:22 Ipratropium/Albuterol PHA 07/19/24 Complete Neb (Duoneb) 17:30 Dexamethasone 4mg/Ml PHA 07/19/24 Complete 1ml Vial (Dexametha 17:30 Current Medications Medications (Trade) Dose Ordered Sig/Nidhi Route PRN Reason Start Time Stop Time Status Last Admin Dose Admin Albuterol (DUOneb) 1 udvial ONCE ONCE IH 07/19/24 17:30 07/19/24 17:31 DC 07/19/24 17:31 Dexamethasone Sodium Phosphate (dexaMETHasone 4MG/ML 1ML VIAL) 10 mg ONCE ONCE IM 07/19/24 17:30 07/19/24 17:31 DC 07/19/24 18:00 Vital Signs Date Time Temp Pulse Resp B/P (MAP) Pulse Ox O2 Delivery O2 Flow Rate FiO2 07/19/24 18:06 100.6 60 20 112/59 98 Room Air* 0 21 07/19/24 17:32 112 20 07/19/24 16:05 102.2 111 18 126/81 98 Room Air* 0 21 07/19/24 15:55 102.2 111 16 126/81 98 Room Air 0 Medical Decision Making MDM MDM: Differential diagnosis: Fever, viral illness, acute asthma exacerbation Previous outside records reviewed: Old ER visits. Need for hospitalization: Patient does not meet criteria for hospitalization. Need for emergency major/minor surgery: No Patient's prior external medical records from other ER visits were reviewed by me as indicated. Prior testing and results from previous visits were reviewed. Prior tests were taken into account with medical decision making and resource utilization, independent historian/historians were used to obtain complete medical history. I independently interpreted the test that were performed, results were reviewed by me and considered findings on radiology if ordered. Medical management and examination interpretation discussions were had by me with other qualified healthcare professionals as indicated for the patient's care. DX & DISP Disposition: Discharge Departure Impression: Primary Impression: Influenza A Additional Impression: Acute asthma exacerbation Condition: Stable Scripts Albuterol Sulfate (Ventolin Hfa/Proventil Hfa/Proair Hfa) 90 Mcg Puff 1 PUFF IH Q4H PRN for SHORTNESS OF BREATH for 5 Days, #1 INH 0 Refills PHARMACY TO DISPENSE 1 INHALER FOR USE Prov: APRIL GONZALEZ MD 07/19/24 Oseltamivir Phosphate (Tamiflu) 75 Mg Cap 75 MG PO BID for 5 Days, #10 CAP Prov: APRIL GONZALEZ MD 07/19/24 Referrals: MARIUSZ KIMBALL MD (PCP) I have reviewed, & agreed with my scribe's, documentation. I personally scribed for APRIL GONZALEZ MD ([email or web address]) on 07/19/24 at 17:11. Electronically submitted by Karen Rothman ([email or web address]). APRIL GONZALEZ MD Jul 19, 2024 16:34
[2024-07-19 16:41] LABS: SARS-CoV-2, RNA, NAAT NEGATIVE SARS CoV-2 (NEGATIVE)
[2024-07-19 16:45] LABS: INFLUENZA TYPE B Negative For Type B (NEGATIVE)
[2024-07-19 16:51] LABS: INFLUENZA TYPE A Positive For Type A (NEGATIVE)
[2024-07-19] MEDS: IpraTROPium/alBUTERol SULFATE 3 ML SOLUTION IH ONE (17:31)
[2024-07-19 17:32] VITALS: PULSE 112; RESP 20
[2024-07-19] MEDS: dexaMETHasone SOD PHOSPHATE 4 MG/ML 1ML VIAL IM ONE (18:00)
[2024-07-19 18:06] VITALS: BP 112/59; PULSE 60; RESP 20; TEMP 100.5; O2SAT 98
[2024-07-19] MEDS ORDERED: ALBUHFA IH (18:18)
[2024-07-19] MEDS ORDERED: OSEL75 PO (18:18)
--- NOTE | 2024-07-19 19:41 | HMCIMG ---
CHEST 1VW HISTORY: Cough COMPARISON: 08/12/2023 FINDINGS: A frontal projection of the chest was obtained. Mild bilateral pulmonary infiltrates are seen may be related to mild pulmonary vascular congestion with possible superimposed pneumonitis. The heart is normal in size. Degenerative changes are seen. No evidence of aortic calcification is seen. IMPRESSION: 1. Mild bilateral pulmonary infiltrates are seen may be related to mild pulmonary vascular congestion with possible superimposed pneumonitis.
== END 2024-07-19 18:41 | disposition home or self-care (01) ==
LOC: EDH 15:54
DX: J10.1 Influenza due to other identified influenza virus with other respiratory manifestations (principal); J45.901 Unspecified asthma with (acute) exacerbation; I10 Essential (primary) hypertension; J44.1 Chronic obstructive pulmonary disease with (acute) exacerbation; Z20.822 Contact with and (suspected) exposure to COVID-19; Z79.52 Long term (current) use of systemic steroids; Z79.899 Other long term (current) drug therapy; Z98.51 Tubal ligation status; Z98.84 Bariatric surgery status
CPT/HCPCS: 99284; 71045; 87635; 87880; 87804 ×2; 96372; 94640; J1100